=== PATIENT | female | born 1945 | race Two or more races ===

== ENCOUNTER → 2024-10-04 | Outpatient (CLI) | payer MEDICARE, MEDICAID, SELFPAY ==
--- NOTE | 2024-10-04 09:55 | XR_ITS ---
Examination: Knee bilateral, 6 views Technique: Knee AP, lateral, oblique each knee total 6 views Date and time of exam: October 04, 2024 1004 hours INDICATIONS: Knee pain 9 months, history bilateral knee surgeries FINDINGS: Severe osteopenia Status post operative reduction internal fixation healed fracture distal right femur No knee fracture Status post operative reduction internal fixation healed fracture proximal left tibia with residual depression of the lateral tibial plateau No acute fracture Bilateral mild narrowing medial joint spaces IMPRESSION: Healed fractures distal right femur and proximal left tibia
== END | disposition home or self-care (01) ==
LOC: CDIM 09:38
PROVIDERS: PCP Family Medicine; Referring Provider Orthopaedic Surgery; Visit Provider Orthopaedic Surgery
DX: M25.561 Pain in right knee (principal); M25.562 Pain in left knee; Z87.81 Personal history of (healed) traumatic fracture; Z98.890 Other specified postprocedural states
CPT/HCPCS: 73562

== ENCOUNTER → 2024-11-12 | Outpatient (CLI) | payer MEDICARE, MEDICAID, SELFPAY ==
[2024-11-12 11:15] LABS: Basophils # (Auto) 0.0 Thou/mm3 (0.0-0.2); Basophils % (Auto) 1 % (0-2.5); Eosinophils # (Auto) 0.0 Thou/mm3 (0.0-0.5); Eosinophils % (Auto) 1 % (0-10); Hematocrit 42.3 % (36.0-46.0); Hemoglobin 14.4 g/dL (12.0-16.0); Immature Granulocytes Auto 0.02 Thou/mm3 (0.00-0.00); Lymphocytes # (Auto) 1.6 Thou/mm3 (1.0-4.8); Lymphocytes % (Auto) 26 % (10-50); Mean Corpuscular HGB Conc 34.0 g/dl (31.0-37.0); Mean Corpuscular Hemoglobin 31.0 pg (25.0-35.0); Mean Corpuscular Volume 91 fL (80-100); Monocytes # (Auto) 0.5 Thou/mm3 (0.0-0.8); Monocytes % (Auto) 8 % (0-12); Neutrophils # (Auto) 3.9 Thou/mm3 (1.8-7.7); Neutrophils % (Auto) 64 % (37-80); Nucleated Red Blood Cell # 0.00 Thou/mm3 (0.00-0.00); Nucleated Red Blood Cell % 0 /100 WBC (0); Platelet Count 180 Thou/mm3 (140-440); RDW Standard Deviation 41.9 fL (36.4-46.3); Red Blood Count 4.64 Miln/mm3 (4.00-5.20); White Blood Count 6.2 Thou/mm3 (3.6-11.0)
[2024-11-12 11:41] LABS: Alanine Aminotransferase 23 U/L (10-49); Albumin, Serum 4.2 gm/dL (3.4-4.8); Albumin/Globulin Ratio 2.0 (1.2-2.2); Alkaline Phosphatase 89 U/L (46-116); Anion Gap 9 (7-16); Aspartate Amino Transferase 20 U/L (0-34); BUN/Creatinine Ratio 11 Ratio (12-20); Bilirubin,Total 0.6 mg/dL (0.3-1.2); Blood Urea Nitrogen 8 mg/dL (9-23); Calcium 9.6 mg/dL (8.3-10.6); Calcium (Corrected) 9.6 mg/dL (8.5-10.1); Carbon Dioxide 28.2 mMol/L (20.0-31.0); Cardiac Risk Estimate 2.0 RATIO (3.7-5.6); Chloride 102 mMol/L (98-107); Cholesterol 143 mg/dL (132-200); Creatinine (Component) 0.7 mg/dL (0.6-1.3); Globulin 2.1 gm/dL (2.3-3.5); HDL Cholesterol 73 mg/dL (40-60); LDL Cholesterol,Calculated 52 mg/dL (0-130); Osmolality,Calculated 292 (275-295); Potassium 4.4 mMol/L (3.4-5.1); Sodium 139 mMol/L (136-145); Thyroid Stimulating Hormone 1.31 uIU/mL (0.55-4.78); Total Protein 6.3 gm/dL (5.7-8.2); Triglycerides 88 mg/dL (30-150); eGFR > 60 See Note
[2024-11-12 11:46] LABS: Glucose Estimated Average 246 mg/dL (80-131); Hemoglobin A1C 10.2 % Hgb (4.8-6.0)
[2024-11-12 11:47] LABS: Glucose 403 mg/dL (74-106)
== END | disposition home or self-care (01) ==
LOC: COPL 10:13
PROVIDERS: PCP Family Medicine; Referring Provider Student in an Organized Health Care Education/Training Program; Visit Provider Student in an Organized Health Care Education/Training Program
DX: M54.12 Radiculopathy, cervical region (principal); E11.65 Type 2 diabetes mellitus with hyperglycemia; Z71.51 Drug abuse counseling and surveillance of drug abuser; E78.5 Hyperlipidemia, unspecified
CPT/HCPCS: 36415; 80053; 80061; 80307; 83036; 84443; 85025

== ENCOUNTER → 2024-11-16 | Outpatient (CLI) | payer MEDICARE, MEDICAID, SELFPAY ==
[2024-11-16 13:42] LABS: OBS Performed By LAB; OBS QC OK? Yes
[2024-11-16 14:43] LABS: Amphetamine/Methamp Scrn,U Negative (Negative); Barbiturate Screen,Urine Negative (Negative); Benzodiazepines Screen,Urine Negative (Negative); Benzoylecgonine Screen, Ur Negative (Negative); Fentanyl Screen,Urine Negative (Negative); Opiate Screen,Urine Positive (Negative); THC Screen,Urine Negative (Negative)
[2024-11-16 15:35] LABS: OBS Developer Expiration Date 2-28-27; OBS Developer Lot # 4-24-551749; Occult Blood, Stool Negative (Negative); Occult Blood, Stool #2 Negative (Negative); Occult Blood, Stool #3 Negative (Negative)
== END | disposition home or self-care (01) ==
LOC: SLDO 13:09
PROVIDERS: PCP Student in an Organized Health Care Education/Training Program; Referring Provider Student in an Organized Health Care Education/Training Program; Visit Provider Student in an Organized Health Care Education/Training Program
DX: Z12.11 Encounter for screening for malignant neoplasm of colon (principal); M54.12 Radiculopathy, cervical region; Z71.51 Drug abuse counseling and surveillance of drug abuser
CPT/HCPCS: 80307; 82270

== ENCOUNTER 2024-11-28 11:39 | Emergency (ER) | payer MEDICARE, MEDICAID, SELFPAY ==
[2024-11-28 11:47] VITALS: PULSE 80; RESP 20; O2SAT 97; BMI 23.8
[2024-11-28 11:52] VITALS: BP 173/78; PULSE 94; RESP 19; TEMP 37.1; O2SAT 96
--- NOTE | 2024-11-28 12:06 | XR_ITS ---
Examination: CT cervical spine without contrast 2-D sagittal reconstructions 2-D coronal reconstructions 3-D reconstructions. Exam date and time:November 28, 2024, 1210 hours INDICATIONS: Ground-level fall today with injury to the neck CTDI:vol (mGy) 12.7 DLP: (mGycm) 280 Technique: Multiple 2 mm axial sections of the cervical spine have been obtained. The coronal and sagittal reconstructions have been obtained. 3-D reconstructions have been obtained. Low dose protocols were performed. One or more of the following dose reduction techniques were used; automated exposure control, adjustment of the mA and/or KV according to patient size, use of iterative reconstruction technique. Findings: Axial sections demonstrate intact base of the skull. Cervical fusion C5-C6 C1 exhibit satisfactory relationship to the odontoid. No acute cervical vertebral body fracture seen. Alignment posterior spinous processes satisfactory. Impression: No acute cervical fracture.
--- NOTE | 2024-11-28 12:06 | XR_ITS ---
Examination: CT thoracic spine, without contrast. 2-D sagittal reconstructions. 2-D coronal reconstructions. 3-D reconstructions. Date and time of exam:November 28, 2024, 1221 hours INDICATIONS: Ground-level fall today with injury to the thoracic spine, thoracic spine pain CTDI: vol (mGy):47.1 DLP: (mGycm):1484 Technique: Multiple 1.25 mm axial sections of the thoracic spine without intravenous contrast have been obtained. 2-D sagittal and coronal reconstructions have been obtained. 3-D reconstructions have been obtained. Low dose protocols were performed. One or more of the following dose reduction techniques were used; automated exposure control, adjustment of the mA and/or KV according to patient size, use of iterative reconstruction technique. Findings: Severe osteopenia Mild acute compression fracture T11 vertebral body, depression inferior endplate, reduction in height 15% Satisfactory alignment of this thoracic vertebral body No focal thoracic disc protrusion IMPRESSION: Mild acute compression fracture T11 vertebral body
--- NOTE | 2024-11-28 12:06 | XR_ITS ---
Examination: CT lumbar spine, without contrast. 2-D sagittal reconstructions. 2-D coronal reconstructions. 3-D reconstructions. Date and time of exam:November 28, 2024 12:21 PM INDICATIONS: Ground-level fall today with injury to the lower back, lower back pain CTDI: vol (mGy):59.3 DLP: (mGycm):1772 Technique: Multiple 1.25 mm axial sections of the lumbar spine have been obtained. 2-D sagittal and coronal reconstructions have been obtained. 3-D reconstructions have been obtained. Low dose protocols were performed. One or more of the following dose reduction techniques were used; automated exposure control, adjustment of the mA and/or KV according to patient size, use of iterative reconstruction technique. Findings: Severe osteopenia Acute fracture T11, please see the CT thoracic spine report No acute lumbar fracture Lumbar pedicles, laminae, transverse and posterior spinous processes intact L5-S1 2 mm central lumbar disc bulge L4-L5 3 mm central lumbar disc bulge IMPRESSION: Mild acute fracture T11, please see the CT thoracic spine report No acute lumbar fracture
--- NOTE | 2024-11-28 12:06 | XR_ITS ---
Examination: CT brain head without contrast. 2-D sagittal coronal reconstructions Date and time of exam:November 28, 2024, 1210 hours INDICATIONS: Ground-level fall today with injury to the head, head pain. CTDI: vol (mGy):45.7 DLP: (mGycm):920 Technique: Multiple CT axial sections of the brain have been obtained, 5 mm slice thickness. Contrast has not been administered. 2-D sagittal, coronal reconstructions have been obtained Low dose protocols were performed. One or more of the following dose reduction techniques were used; automated exposure control, adjustment of the mA and/or KV according to patient size, use of iterative reconstruction technique. Findings: No significant ventricular enlargement. Intra-axial or extra-axial hemorrhage density is not seen. No mass effect or midline shift Basal cisterns are not remarkable. Fourth ventricle is midline. Cranial vault intact. Impression: Negative for acute hemorrhage, mass effect or midline shift
--- NOTE | 2024-11-28 12:07 | PD.EDHEAD ---
ED Head Injury RME/HPI General Chief complaint: Head Injury Stated complaint: FALL Time Seen by Provider: 11/28/24 11:44 Arrival date/time: 11/28/24 11:39 RME / HPI RME / HPI Narrative: 79-year-old female patient was brought in by EMS for evaluation regarding ground-level fall. Patient sustained a ground-level fall few minutes prior to ER visit, was walking, and lost control and landed on his back. Patient sustained 4 cm gaping laceration to the scalp occipital area. Patient complained of neck pain, low back pain, described as dull ache severity moderate. Patient denies any pelvic pain. Denies any other complaints no medication was taken prior to arrival. Denies vaccination is unknown. Patient is not taking any blood thinner. Related Data Home Medications ?Medication ?Instructions ?Recorded ?Confirmed duloxetine 30 mg capsule,delayed 30 mg PO QDAY 12/25/23 01/01/24 release hydrocodone 7.5 mg-acetaminophen 1 tab PO Q6H PRN Pain 12/25/23 01/01/24 325 mg tablet rosuvastatin 10 mg tablet 10 mg PO HS 12/25/23 01/01/24 alprazolam 1 mg tablet 1 mg PO QDAY PRN Anxiety 01/01/24 01/01/24 ezetimibe 10 mg tablet 10 mg PO QDAY 01/01/24 01/01/24 glimepiride 1 mg tablet 1 mg PO QDAY 01/01/24 01/01/24 Allergies Allergy/AdvReac Type Severity Reaction Status Date / Time milk Allergy Severe ABD PAIN Verified 11/28/24 11:47 codeine AdvReac Severe Hallucinati Verified 11/28/24 11:47 ng Review of Systems Review of Systems Narrative Review of Systems: Review of system reviewed and within normal limits except mentioned in HPI ED Exam Narrative Physical exam: VITAL SIGNS: Reviewed. GENERAL APPEARANCE: Alert and interactive, follows commands, no acute distress, HEAD AND FACE: +4 cm scalp laceration, occipital area gaping with tenderness ENT: PERRL, pink conjunctivitis, eyelid no trauma, Mucous membrane moist. NECK: Supple, posterior neck tenderness, no nuchal rigidity. CHEST: No tenderness, no crepitus, no paradoxical movement, no retractions. LUNGS: Clear, well ventilated, symmetric, no rales, no wheezing, no ronchi, no stridor, good breath sounds bilaterally. HEART: Regular rate, regular rhythm, no murmur, no gallops. ABDOMEN: Soft, positive bowel sounds, nondistended, no guarding, nontender, no rebound, no masses, RECTAL: Deferred. GENITAL: Deferred. NEUROLOGICAL: Gross motor function intact sensory function intact, Appropriate for age. MUSCULOSKELETAL: low back tenderness, full range of motion. EXTREMITIES: Nontender, full range of motion. SKIN: Color pink, dry, no rash, no lacerations, no abrasions, no contusions. LYMPHATICS: Deferred. Course Quality Measures none Orders Category Date Time Status CT cervical spine wo con Stat Exams 11/28/24 12:[address] head/brain wo con Stat Exams 11/28/24 12:[address] lumbar spine wo con Stat Exams 11/28/24 12:[address] thoracic spine wo con Stat Exams 11/28/24 12:06 Completed HYDROcodone/APAP 10/325 [Gurley 10/325] Med 11/28/24 12:06 Discontinued 1 tab PO X1 ONE TET,DIP/PERT AC (Adult)-Tdap [Boostrix Adult (Tdap) Med 11/28/24 12:06 Discontinued Vacc] 0.5 ml IMI .ONCE ONE Vital Signs Vital signs: Vital Signs Temperature 98.7 F 11/28/24 11:52 Pulse Rate 94 11/28/24 11:52 Respiratory Rate 19 11/28/24 11:52 Blood Pressure 173/78 H 11/28/24 11:52 Pulse Oximetry (%) 96 11/28/24 11:52 Oxygen Delivery Method Room Air 11/28/24 11:52 Head Injury MDM Narrative MDM Narrative:: 79-year-old female patient was brought in by EMS for evaluation regarding ground-level fall. Patient sustained a ground-level fall few minutes prior to ER visit, was walking, and lost control and landed on his back. Patient sustained 4 cm gaping laceration to the scalp occipital area. Patient complained of neck pain, low back pain, described as dull ache severity moderate. Patient denies any pelvic pain. Denies any other complaints no medication was taken prior to arrival. Denies vaccination is unknown. Patient is not taking any blood thinner. Scalp laceration cleansed with NS, and staple applied x 4, patient tolerated procedure well. CT scan of the head came back unremarkable. CT scan of the neck came back unremarkable. I called CT scan of the lumbar spine, came back unremarkable. CT scan of the thoracic spine showed mild compression fraction T11, with no retropulsion noted. Results discussed with the patient. Patient stable for discharge home. Was advised to follow-up closely with PCP and for referral to spine surgeon. They both agree Further imaging is noted at this time, patient is showing any cauda equina syndrome. Patient data External records reviewed:: None Clinical information provided by:: patient Social determinants that could affect healthcare access:: none Patient has the following chronic illnesses:: Chronic back pain How is presenting disease/condition affected by chronic disease/condition?: exacerbated by Evaluation data The following diagnostics were reviewed and interpreted by me:: radiology exam(s) Lab and/or radiology exams considered but not ordered:: None Interpretation Summary: See results and MDM Medications / Prescriptions Medications or Prescriptions considered but not ordered:: None Medication administrations:: Medication Administration History Discontinued Medications Hydrocodone Bitart/Acetaminophen (Hydrocodone/Apap 10/325 Tab) 1 tab PO X1 ONE Stop: 11/28/24 12:07 Last Admin: 11/28/24 12:34 Dose: 1 tab Documented By: JEN Diphtheria/Tetanus/Acell Pertussis (Diphth,Pertuss(Acell),Tet Vac 0.5 Ml Syr- Adult) 0.5 ml IMi .ONCE ONE Stop: 11/28/24 12:07 Last Admin: 11/28/24 12:35 Dose: 0.5 ml Documented By: JEN Boostrix and Gurley Consultations Consultation(s) initiated? (list below): No Diagnosis Differential diagnosis head injury: closed head injury and other (Compression fracture T11, scalp laceration) Most likely diagnosis given after review of the tests above:: Scalp laceration, compression fracture of T11, fall Admission Indicated Admission indicated?: not indicated Admission Request Was there a request for admission?: No Disposition Plan Disposition Plan: Discharge Discharge Attestation Discharge Attestation: The patient and all family members were given an opportunity to ask questions and understood the discharge instructions. Discharge instructions specifically effects, indications for sooner follow up or return to the emergency department, and the expected course of current diagnosis. Patient condition: Stable Discharge Plan Plan Patient Disposition: HOME (Self Care) Discharge Disposition comment: stable Prescriptions/Referrals Prescriptions/Med Rec: No Action hydrocodone-acetaminophen 7.5-325 mg tablet 1 tab PO Q6H PRN (Reason: Pain) rosuvastatin 10 mg tablet 10 mg PO HS duloxetine 30 mg capsule,delayed release(DR/EC) 30 mg PO QDAY glimepiride 1 mg tablet 1 mg PO QDAY Patient Comments: TAKE 1 TABLET BY MOUTH EVERY DAY WITH BREAKFAST OR THE FIRST MAIN MEAL OF THE DAY FOR DIABETES ezetimibe 10 mg tablet 10 mg PO QDAY Patient Comments: TAKE 1 TABLET BY MOUTH DAILY alprazolam 1 mg tablet 1 mg PO QDAY PRN (Reason: Anxiety) Patient Comments: TAKE 1/2 TO 1 TABLET BY MOUTH DAILY NEEDED FOR ANXIETY Referrals: Antonio Desai PA-C [Primary Care Provider] - In 1 week Problem List Clinical Impression: Laceration of scalp, Fall, Compression fracture of T11 vertebra Patient/Caregiver Discharge Instructions Discharge Activity: activity as tolerated Education Materials: Back Fracture (Compression Fracture) Additional Instructions: Thank you for the opportunity for serving you today. You are stable for discharged . You are advised to: Follow-up with your PCP in 1 to 2 days and for referral to spine surgery as needed, your compression fracture is stable, compression of t less 15%. Return to ED for worsening of symptoms Increase oral fluids Take your Gurley as needed for pain Daily dressing with bacitracin as needed For removal of maria teresa in 7 days Print Language: Ukrainian Stand Alone Forms: Paige Award Info., Patient Portal Info Letter ELI/BALDO Supervising Physician ELI/BALDO Supervising Physician: MD Bharathi
[2024-11-28] MEDS: DIPHTH,PERTUSS(ACELL),TET VAC 0.5 ML SYR- ADULT IMi (12:35)
[2024-11-28 13:03] VITALS: BP 159/65; PULSE 75; RESP 18; TEMP 37; O2SAT 96
[2024-11-28 15:24] VITALS: BP 154/80; PULSE 73; RESP 18; TEMP 37; O2SAT 95
--- NOTE | 2024-11-28 15:31 | PC.NURSE ---
head injury site redressed by shiva
== END 2024-11-28 15:34 | disposition home or self-care (01) ==
PROVIDERS: Emergency Provider Emergency Medicine; PCP Student in an Organized Health Care Education/Training Program
DX: S22.080A Wedge compression fracture of T11-T12 vertebra, initial encounter for closed fracture (principal); S01.01XA Laceration without foreign body of scalp, initial encounter; M54.2 Cervicalgia; M54.50 Low back pain, unspecified; W18.30XA Fall on same level, unspecified, initial encounter; Y93.01 Activity, walking, marching and hiking; Z23 Encounter for immunization
CPT/HCPCS: 70450; 72125; 72128; 72131; 90471; 90715; 99284; A9270

== ENCOUNTER → 2024-12-03 | Outpatient (CLI) | payer MEDICARE, MEDICAID, SELFPAY ==
--- NOTE | 2024-12-03 10:01 | XR_ITS ---
Examination: Bilateral lower legs 4 views Technique one AP lateral right and left tibia-fibula 4 views Date and time: December 03, 2024 1031 hours INDICATIONS: Lower leg pain one year, history bilateral surgeries both legs, personal history osteoporosis FINDINGS: Partial visualization femoral sideplate right femur with healed fracture distal femur Severe osteopenia Right tibia fibula intact Status post operative reduction internal fixation healed fracture lateral left tibial plateau Orthopedic hardware satisfactory position No acute fracture IMPRESSION: No acute fractures No cortical bone destruction
--- NOTE | 2024-12-03 12:20 | XR_ITS ---
Examination: Bone densitometry Date and time of exam:December 04, 2019 5:11 AM INDICATIONS: Hysterectomy age 31 hip fracture 2015% history osteoporosis Technique: Lumbar spine and hip total bone mineralization values of an calculated. Peak reference and age match control results have been displayed. Findings: Lumbar spine total bone mineralization is0.781 gm/cm2. This is 2.4 standard deviations below peak reference. This is 0.2 standard deviations above age-matched controls. Hip total bone mineralization is 0.496 gm/cm2 This is 3.5 standard deviations below peak reference. This is 1.5 standard deviations below age-matched controls Impression: There is osteopenia based on lumbar spine measurements. There is osteoporosis based on hip measurements Lumbar mineralization is increased 2.6% compared with August 15, 2020 Hip mineralization is decreased 20.5% compared with August 15, 2020
== END | disposition home or self-care (01) ==
PROVIDERS: PCP Family Medicine; Referring Provider Student in an Organized Health Care Education/Training Program; Visit Provider Student in an Organized Health Care Education/Training Program
DX: M79.604 Pain in right leg (principal); M79.605 Pain in left leg; M85.88 Other specified disorders of bone density and structure, other site; M81.0 Age-related osteoporosis without current pathological fracture
CPT/HCPCS: 73590; 77080

== ENCOUNTER → 2025-02-07 | Outpatient (CLI) | payer MEDICARE, MEDICAID, SELFPAY ==
[2025-02-07 12:18] LABS: Basophils # (Auto) 0.0 Thou/mm3 (0.0-0.2); Basophils % (Auto) 1 % (0-2.5); Eosinophils # (Auto) 0.1 Thou/mm3 (0.0-0.5); Eosinophils % (Auto) 1 % (0-10); Hematocrit 40.7 % (36.0-46.0); Hemoglobin 13.6 g/dL (12.0-16.0); Immature Granulocytes Auto 0.02 Thou/mm3 (0.00-0.00); Lymphocytes # (Auto) 1.9 Thou/mm3 (1.0-4.8); Lymphocytes % (Auto) 29 % (10-50); Mean Corpuscular HGB Conc 33.4 g/dl (31.0-37.0); Mean Corpuscular Hemoglobin 30.4 pg (25.0-35.0); Mean Corpuscular Volume 91 fL (80-100); Monocytes # (Auto) 0.6 Thou/mm3 (0.0-0.8); Monocytes % (Auto) 9 % (0-12); Neutrophils # (Auto) 3.9 Thou/mm3 (1.8-7.7); Neutrophils % (Auto) 60 % (37-80); Nucleated Red Blood Cell # 0.00 Thou/mm3 (0.00-0.00); Nucleated Red Blood Cell % 0 /100 WBC (0); Platelet Count 204 Thou/mm3 (140-440); RDW Standard Deviation 44.0 fL (36.4-46.3); Red Blood Count 4.47 Miln/mm3 (4.00-5.20); White Blood Count 6.6 Thou/mm3 (3.6-11.0)
[2025-02-07 12:31] LABS: Glucose Estimated Average 160 mg/dL (80-131); Hemoglobin A1C 7.2 % Hgb (4.8-6.0)
[2025-02-07 12:49] LABS: Alanine Aminotransferase 14 U/L (10-49); Albumin, Serum 4.5 gm/dL (3.4-4.8); Albumin/Globulin Ratio 2.3 (1.2-2.2); Alkaline Phosphatase 59 U/L (46-116); Anion Gap 10 (7-16); Aspartate Amino Transferase 19 U/L (0-34); BUN/Creatinine Ratio 13 Ratio (12-20); Bilirubin,Total 0.5 mg/dL (0.3-1.2); Blood Urea Nitrogen 10 mg/dL (9-23); Calcium 9.0 mg/dL (8.3-10.6); Calcium (Corrected) 9.0 mg/dL (8.5-10.1); Carbon Dioxide 25.9 mMol/L (20.0-31.0); Cardiac Risk Estimate 2.1 RATIO (3.7-5.6); Chloride 105 mMol/L (98-107); Cholesterol 138 mg/dL (132-200); Creatinine (Component) 0.8 mg/dL (0.6-1.3); Globulin 2.0 gm/dL (2.3-3.5); Glucose 189 mg/dL (74-106); HDL Cholesterol 67 mg/dL (40-60); LDL Cholesterol,Calculated 44 mg/dL (0-130); Osmolality,Calculated 285 (275-295); Potassium 4.1 mMol/L (3.4-5.1); Sodium 141 mMol/L (136-145); Thyroid Stimulating Hormone 1.64 uIU/mL (0.55-4.78); Total Protein 6.5 gm/dL (5.7-8.2); Triglycerides 137 mg/dL (30-150); eGFR > 60 See Note
== END | disposition home or self-care (01) ==
LOC: COPL 11:27
PROVIDERS: PCP Student in an Organized Health Care Education/Training Program; Referring Provider Student in an Organized Health Care Education/Training Program; Visit Provider Student in an Organized Health Care Education/Training Program
DX: E78.5 Hyperlipidemia, unspecified (principal); E11.65 Type 2 diabetes mellitus with hyperglycemia
CPT/HCPCS: 36415; 80053; 80061; 83036; 84443; 85025